=== PATIENT | female | born 1945 | race Caucasian/White ===

== ENCOUNTER → 2016-09-25 | Outpatient (CLI) | payer MEDICARE, BC ==
[~2016-09-25] MED LIST: ALDACTONE25 MG PO; ASCORBIC ACID500 MG PO; ASPIRIN EC81 MG PO; BYSTOLIC10 MG PO; CITRACAL+D(315M1 TAB PO; COZAAR50 MG PO; FISH OIL 1,0001 EAC4 PO; LASIX40 M1 PO; LEVOTHROID (S112 MCG PO; LIPITOR20 M1 PO; THERA-VITE W/ B1 TAB PO; VITAMIN D1000 UNIT PO
== END | disposition disaster alternative care site (69) ==
LOC: GBCOE 09-20 09:00
DX: Z12.31 Encounter for screening mammogram for malignant neoplasm of breast (principal)
CPT/HCPCS: G0202